=== PATIENT | female | born 1970 | race Caucasian/White ===

== ENCOUNTER 2021-09-07 11:48 | Emergency (ER) | payer SELFPAY ==
[2021-09-07] MEDS ORDERED: Dexamethasone 10 MG/ML VIAL ONE (12:54)
== END 2021-09-07 13:15 | disposition home or self-care (01) ==
LOC: MADERS 11:48
DX: B34.9 Viral infection, unspecified (principal); J01.90 Acute sinusitis, unspecified
CPT/HCPCS: 71046; 96372; J1100